=== PATIENT | male | born 2000 | race Hispanic/Latino ===

== ENCOUNTER 2021-03-23 18:20 | Emergency (ER) | payer OTHER ==
[2021-03-23] MEDS ORDERED: Ketorolac Tromethamine 30 MG/ML VIAL ONE (18:38)
== END 2021-03-23 19:30 | disposition home or self-care (01) ==
LOC: ERS 18:20
DX: S70.11XA Contusion of right thigh, initial encounter (principal); W11.XXXA Fall on and from ladder, initial encounter
CPT/HCPCS: 96372; J1885

== ENCOUNTER 2021-08-24 08:09 | Emergency (ER) | payer OTHER, SELFPAY ==
[2021-08-24] MEDS ORDERED: Ibuprofen 200 MG TAB ONE (09:39)
== END 2021-08-24 11:30 | disposition home or self-care (01) ==
LOC: ERS 08:09
DX: S63.601A Unspecified sprain of right thumb, initial encounter (principal); W20.8XXA Other cause of strike by thrown, projected or falling object, initial encounter

== ENCOUNTER 2023-01-24 08:19 | Emergency (ER) | payer OTHER, SELFPAY ==
[2023-01-24] MEDS ORDERED: Acetaminophen 500 MG TAB ONE (08:45)
[2023-01-24 09:47] LABS: SARS-CoV-2 NAA Rapid Test Not Detected (NotDetected)
== END 2023-01-24 10:50 | disposition home or self-care (01) ==
LOC: ERS 08:19
DX: H66.92 Otitis media, unspecified, left ear (principal); Z20.822 Contact with and (suspected) exposure to COVID-19
CPT/HCPCS: 87081; 87430; 99283